=== PATIENT | female | born 1995 | race Caucasian/White ===

== ENCOUNTER 2016-12-25 19:13 | Emergency (ER) | payer OTHER ==
[~2016-12-25] VITALS: Ht 162.6 cm; Wt 76.5 kg
[2016-12-25 19:38] VITALS: Ht 162.6 cm; Wt 76.5 kg
--- NOTE | 2016-12-25 20:55 | ERA ---
ER Documentation Chief Complaint Date/Time DATE: 12/25/16 TIME: 20:52 Chief Complaint 5 weeks , pelvic pain x 1 week HPI This is a 21-year-old female who presents with a chief complaint of lower abdominal/pelvic pain. Also states associated vaginal discharge without specific characteristics. Aggravating factors include bending over and tight waistline of pants. Patient denies similar symptoms before, sexual activity, dysuria, hematuria, or vaginal bleeding. ROS All systems reviewed and are negative except as per history of present illness. Allergies Allergies: Coded Allergies: No Known Allergy (Unverified , 12/25/16) PMhx/Soc History of Surgery: No Anesthesia Reaction: No Hx Neurological Disorder: No Hx Respiratory Disorders: No Hx Cardiac Disorders: Yes (hyperthyroid) Hx Psychiatric Problems: No Hx Miscellaneous Medical Probl: No Hx Alcohol Use: No Hx Substance Use: No Hx Tobacco Use: No Smoking Status: Never smoker Physical Exam Vitals Vital Signs Date Time Temp Pulse Resp B/P Pulse Ox O2 Delivery O2 Flow Rate FiO2 12/25/16 19:38 97.8 89 20 142/71 100 Physical Exam Const: [] Head: Atraumatic Eyes: Normal Conjunctiva ENT: Normal External Ears, Nose and Mouth. Neck: Full range of motion..~ No meningismus. Resp: Clear to auscultation bilaterally Cardio: Regular rate and rhythm, no murmurs Abd: Soft, non tender, non distended. Normal bowel sounds Skin: No petechiae or rashes Back: No midline or flank tenderness Ext: No cyanosis, or edema Neur: Awake and alert Psych: Normal Mood and Affect Result Diagram: 12/25/162149 Results 24 hrs Laboratory Tests Test 12/25/16 20:55 12/25/16 21:00 12/25/16 21:50 Urine Color LT. YELLOW Urine Clarity CLEAR Urine pH 6.0 Urine Specific [place] 1.025 Urine Ketones NEGATIVE Urine Nitrite NEGATIVE Urine Bilirubin NEGATIVE Urine Urobilinogen 1.0 E.U./dL Urine Leukocyte Esterase NEGATIVE Urine Hemoglobin NEGATIVE Urine Glucose NEGATIVE% Urine Total Protein NEGATIVE Bedside Urine pH (LAB) 6.5 Bedside Urine Protein (LAB) Negative Bedside Urine Glucose (UA) Negative Bedside Urine Ketones (LAB) Negative Bedside Urine Blood Trace-intact Bedside Urine Nitrite (LAB) Negative Bedside Urine Leukocyte Esterase (L Negative White Blood Count 12.510^3/ul Red Blood Count 4.4410^6/ul Hemoglobin 13.7g/dl Hematocrit 39.7% Mean Corpuscular Volume 89.4fl Mean Corpuscular Hemoglobin 30.9pg Mean Corpuscular Hemoglobin Concent 34.5g/dl Red Cell Distribution Width 11.8% Platelet Count 76623^3/UL Mean Platelet Volume 10.2fl Neutrophils % 65.4% Lymphocytes % 27.5% Monocytes % 6.0% Eosinophils % 0.6% Basophils % 0.2% Nucleated Red Blood Cells % 0.0/100WBC Neutrophils # 8.210^3/ul Lymphocytes # 3.410^3/ul Monocytes # 0.810^3/ul Eosinophils # 0.110^3/ul Basophils # 0.010^3/ul Nucleated Red Blood Cells # 0.010^3/ul Beta HCG, Quantitative 26647.0mIU/ml Procedures/MDM Patient was evaluated and worked up for lower abdominal/pelvic pain. Patient did have suprapubic tenderness. test was positive. Went ahead and worked up with a full first trimester vaginal exam and labs. Pelvic ultrasound revealed the following: Single live intrauterine with an estimated gestational age of 5 weeks and 5 days, based on ultrasound measurements. QUANG based on ultrasound measurements is 08/22/2017. bradycardia is noted. This may be due to the early gestational age. However close follow-up is recommended for viability. Patient's labs were unremarkable. We will go ahead and him the labs to the patient and advised to be followed up in 2 days. Patient has verbally acknowledged that she understands her current condition and the plan for management. Patient's vitals are stable and her current condition is appropriate for discharge. Departure Diagnosis: Primary Impression: Pelvic pain affecting Condition: Stable Additional Instructions: Follow-up in 2 days for reevaluation with [facility] or return to the emergency department if [facility] not available. Return the the emergency department immediately if symptoms worsen or change. ALIYA CHAO PA-C December 25, 2016 20:55
[2016-12-25 20:58] LABS: URINE BLOOD (Dip) POC Trace-intact (NEGATIVE)
--- NOTE | 2016-12-25 22:02 | RADRPT ---
PROCEDURE: US OB. CLINICAL INDICATION: pelvic pain TECHNIQUE: Transabdominal and transvaginal views of the pelvis are available for review. COMPARISON: No prior studies are available for comparison. FINDINGS: There is a single intrauterine gestation with the crown-rump length measuring 0.2 cm, corresponding to a gestational age of 5 weeks and 5 days. The heart rate is noted at 100 bpm. The right ovary measures 2.7 x 2.6 cm. There is normal Doppler flow in the right ovary. The left ovary was not seen. There is no free fluid. RPTAT: AA IMPRESSION: Single live intrauterine with an estimated gestational age of 5 weeks and 5 days, based on ultrasound measurements. QUANG based on ultrasound measurements is 08/22/2017. bradycardia is noted. This may be due to the early gestational age. However close follow-up is recommended for viability. .Kingston Chester MD, MD Date Time Electronically viewed and signed by .Kingston Chester MD, on 12/25/2016 22:02 .S/
[2016-12-25 22:04] LABS: ADD SCAN DIFF NO
[2016-12-25 22:07] LABS: BASOPHILS % 0.2 % (0.0-2.0); EOSINOPHILS # 0.1 10^3/ul (0.0-0.5); EOSINOPHILS % 0.6 % (0.0-7.0); HEMATOCRIT 39.7 % (37.0-47.0); HEMOGLOBIN 13.7 g/dl (12.0-16.0); LYMPHOCYTES # 3.4 10^3/ul (0.8-2.9); LYMPHOCYTES % 27.5 % (15.0-51.0); MEAN CORPUSCULAR HEMOGLOBIN 30.9 pg (29.0-33.0); MEAN CORPUSCULAR HGB CONC 34.5 g/dl (32.0-37.0); MEAN CORPUSCULAR VOLUME 89.4 fl (82.0-101.0); MEAN PLATELET VOLUME 10.2 fl (7.4-10.4); MONOCYTE # 0.8 10^3/ul (0.3-0.9); NEUTROPHIL # 8.2 10^3/ul (1.6-7.5); NEUTROPHILS % 65.4 % (39.0-77.0); PLATELET COUNT 334 10^3/UL (140-415); RED BLOOD COUNT 4.44 10^6/ul (4.20-5.40); RED CELL DISTRIBUTION WIDTH 11.8 % (11.5-14.5); WHITE BLOOD COUNT 12.5 10^3/ul (4.8-10.8)
[2016-12-25 22:11] LABS: ADD UMIC NO; URINE BILIRUBIN (Dip) NEGATIVE (NEGATIVE); URINE BLOOD (Dip) NEGATIVE (NEGATIVE); URINE COLOR LT. YELLOW (YELLOW); URINE GLUCOSE (Dip) NEGATIVE (NEGATIVE); URINE KETONES (Dip) NEGATIVE (NEGATIVE); URINE LEUKOCYTE ESTERASE (Dip) NEGATIVE (NEGATIVE); URINE NITRITE (Dip) NEGATIVE (NEGATIVE); URINE TOTAL PROTEIN (Dip) NEGATIVE (NEGATIVE); URINE UROBILINOGEN (Dip) 1.0 E.U./dL (0.1-1.0)
[2016-12-26 00:08] VITALS: BP 134/99; PULSE 80; RESP 16; TEMP 98.2
[2016-12-27] MEDS ORDERED: MCN2C47 VAGINAL (17:38)
[2016-12-27] MEDS ORDERED: CLOT21CR7 VG (17:38)
== END 2016-12-26 00:09 | disposition home or self-care (01) ==
LOC: FTE 19:13
DX: O26.891 Other specified pregnancy related conditions, first trimester (principal); R10.2 Pelvic and perineal pain; Z3A.01 Less than 8 weeks gestation of pregnancy
CPT/HCPCS: 36415; 76801; 76817; 81003; 84702; 85025; 86900; 86901

== ENCOUNTER 2016-12-27 15:09 | Emergency (ER) | payer OTHER ==
[~2016-12-27] VITALS: Wt 76.5 kg
[2016-12-27 16:10] LABS: URINE BLOOD (Dip) POC 1+ (NEGATIVE)
--- NOTE | 2016-12-27 16:36 | ERD ---
ER Documentation Chief Complaint Date/Time DATE: 12/27/16 TIME: 16:34 Chief Complaint PT HERE FOR PELVIC PAIN, PT 5 WKS PG, NO VB HPI 21-year-old female who is currently approximately 5 weeks with last menstrual period on November 17, 2016, A0 comes to the emergency department with recheck for her pelvic pain from 2 days ago. Patient reports that she has had intermittent pelvic pain on the left side as well as the right side, the left side it is continuing. It is constant, achy, pressure-like. Intrauterine was seen on the pelvic ultrasound 2 days ago, she states that she has not been able to follow-up outpatient yet. She denies vaginal bleeding, fevers , chills. She denies dizziness. ROS All systems reviewed and are negative except as per history of present illness. Medications Home Meds Active Scripts Clotrimazole (Clotrimazole 3) 21 Gm Cream.appl, 21 GM VG QHS, #3 Prov:CAROLA FRITZ PA-C 12/27/16 Allergies Allergies: Coded Allergies: No Known Allergy (Unverified , 12/25/16) PMhx/Soc History of Surgery: No Anesthesia Reaction: No Hx Neurological Disorder: No Hx Respiratory Disorders: No Hx Cardiac Disorders: Yes (hyperthyroid) Hx Psychiatric Problems: No Hx Miscellaneous Medical Probl: No Hx Alcohol Use: No Hx Substance Use: No Hx Tobacco Use: No Smoking Status: Never smoker Physical Exam Vitals Vital Signs Date Time Temp Pulse Resp B/P Pulse Ox O2 Delivery O2 Flow Rate FiO2 12/27/16 15:12 98.6 93 17 138/78 99 Physical Exam General: Well-developed, well-nourished. The patient appears in no acute distress. HEENT: Head is normocephalic, atraumatic. No scleral icterus. Neck: Supple. Nontender. Lungs: Clear to auscultation. Normal air movement. Heart: Regular rate and rhythm. S1 and S2 are normal. No murmurs, gallops, or rubs. Abdomen: Soft, nontender, nondistended. Bowel sounds are normoactive. gu: Patient has no masses, no pain, there is yeast on the vaginal wall. No CMT tenderness. Extremities: No clubbing or cyanosis. Normal pulses. Moving extremities x 4. No weakness. Neurologic: Alert and oriented 3. No focal deficits. Skin: Normal turgor. No rash or lesions. Results 24 hrs Laboratory Tests Test 12/27/16 16:13 12/27/16 16:30 Bedside Urine pH (LAB) 5.5 Bedside Urine Protein (LAB) Negative Bedside Urine Glucose (UA) Negative Bedside Urine Ketones (LAB) Trace Bedside Urine Blood 1+ Bedside Urine Nitrite (LAB) Negative Bedside Urine Leukocyte Esterase (L Negative Beta HCG, Quantitative 79276.0mIU/ml PROCEDURE: US OB. CLINICAL INDICATION: Left-sided pelvic pain. TECHNIQUE: Transabdominal and transvaginal views of the pelvis are available for review. COMPARISON: OB sonogram 12/25/2016. FINDINGS: The uterus is anteflexed measuring 7.2 cm sagittal by 4.6 cm AP by 5 cm transverse. The uterus contains a gestational sac measuring 2.5 x 0.5 x 1.6 cm. Mean sac diameter is 1.54 cm. This calculates out to 6 weeks 1 day. A yolk sac is identified. Placenta: Circumferential with no evidence of a subchorionic hemorrhage.. Presentation: Mobile [place]-rump length: 0.35 cm equals 6 weeks here days. heart rate: 111 beats per minute. Amniotic fluid volume: Normal. Ultrasound estimated gestational age: 6 weeks 1 day plus or minus 0 weeks 3 days. QUANG (AUA): August 21, 2017. The ovaries are normal. There is normal blood flow to both ovaries. No ovarian or adnexal mass lesion is seen. There is no free fluid. IMPRESSION: 1. Single live intrauterine with an estimated gestational age of 6 weeks 1 day plus or minus 0 weeks 3 days.. 2. QUANG (AUA): August 21, 2017. 3. No free fluid or abnormal adnexal mass is identified. RPTAT:AAJJ Physician Daniel Date Time Electronically viewed and signed by Physician Daniel on 12/27/2016 17:17 JM/ Procedures/MDM 21-year-old female comes emergency room with pelvic pain, she is currently 5 weeks . Patient's pelvic ultrasound was repeated today she states that the pain is still continuing, previously left ovary was not visualized. Pelvic ultrasound at this time shows a single live intrauterine with interval growth, there is no evidence of adnexal masses, ovarian torsion, left ovary is normal. She did have 1+ blood, however she was type and Rh+ from previous visit. She also did complain of vaginal discomfort, and the pelvic ultrasound did show yeast vaginitis and patient will be treated with cream. She is to recheck with her OB in 3-4 days return for any worsening or new symptoms. Departure Diagnosis: Primary Impression: First trimester Additional Impression: Pelvic pain Condition: Good CAROLA FRITZ PA-C December 27, 2016 16:36
--- NOTE | 2016-12-27 17:18 | RADRPT ---
PROCEDURE: US OB. CLINICAL INDICATION: Left-sided pelvic pain. TECHNIQUE: Transabdominal and transvaginal views of the pelvis are available for review. COMPARISON: OB sonogram 12/25/2016. FINDINGS: The uterus is anteflexed measuring 7.2 cm sagittal by 4.6 cm AP by 5 cm transverse. The uterus cont ains a gestational sac measuring 2.5 x 0.5 x 1.6 cm. Mean sac diameter is 1.54 cm. This calculates out to 6 weeks 1 day. A yolk sac is identified. Placenta: Circumferential with no evidence of a subchorionic hemorrhage.. Presentation:Mobile [place]-rump length:0.35 cm equals 6 weeks here days. heart rate:111 beats per minute. Amniotic fluid volume: Normal. Ultrasound estimated gestational age:6 weeks 1 day plus or minus 0 weeks 3 days. QUANG (AUA): 2017. The ovaries are normal. There is normal blood flow to both ovaries. No ovarian or adnexal mass lesion is seen. There is no free fluid. IMPRESSION: 1. Single live intrauterine with an estimated gestational age of 6 weeks 1 day plus or mi nus 0 weeks 3 days.. 2. QUANG (AUA): August 21, 2017. 3. No free fluid or abnormal adnexal mass is identified. RPTAT:AAJJ Physician Daniel Date Time Electronically viewed and signed by Physician Daniel on 12/27/2016 17:17 LUIZ/
[2016-12-27] MEDS ORDERED: MCN2C47 VAGINAL (17:38)
[2016-12-27] MEDS ORDERED: CLOT21CR7 VG (17:38)
[2016-12-27 17:59] VITALS: BP 80/78; PULSE 76; RESP 15; TEMP 98.3
== END 2016-12-27 18:01 | disposition home or self-care (01) ==
LOC: FTE 15:09
DX: O26.891 Other specified pregnancy related conditions, first trimester (principal); R10.2 Pelvic and perineal pain; Z3A.01 Less than 8 weeks gestation of pregnancy
CPT/HCPCS: 76801; 81003; 84702